=== PATIENT | male | born 1970 | race Hispanic/Latino ===

== ENCOUNTER 2021-04-04 07:51 | Emergency (ER) | payer OTHER ==
[2021-04-04] MEDS ORDERED: LIDOCAINE HCL 1% LOCAL INJ 20 ML VIAL INJ STA (07:59)
[2021-04-04] MEDS ORDERED: TETANUS/DIPHTHERIA TOX ADULT 0.5 ML SYR ONE (09:31)
== END 2021-04-04 09:30 | disposition home or self-care (01) ==
LOC: EDBD 07:51 → FSED 07:54
DX: S68.021A Partial traumatic metacarpophalangeal amputation of right thumb, initial encounter (principal); W86.8XXA Exposure to other electric current, initial encounter; Y99.0 Civilian activity done for income or pay
CPT/HCPCS: 90714; 99283